=== PATIENT | female | born 1945 | race Caucasian/White ===

== ENCOUNTER → 2017-10-31 | Outpatient (CLI) | payer OTHER | LOC: BHLMT 14:00 | PROVIDERS: ATTEND Internal Medicine Interventional Cardiology | DX: I48.91 Unspecified atrial fibrillation (principal) | CPT/HCPCS: 93306-PO ==

== ENCOUNTER → 2017-11-14 | Outpatient (CLI) | payer OTHER, MEDICARE | LOC: GIMAGING 15:08 | PROVIDERS: ATTEND Internal Medicine | DX: R10.9 Unspecified abdominal pain (principal) | CPT/HCPCS: 74019-PO ==

== ENCOUNTER → 2018-01-17 | Outpatient (CLI) | payer OTHER, MEDICARE | LOC: BHLMT 09:30 | PROVIDERS: ATTEND Internal Medicine Cardiovascular Disease | DX: I48.91 Unspecified atrial fibrillation (principal); R00.2 Palpitations | CPT/HCPCS: 93005-PO ==

== ENCOUNTER → 2018-02-07 | Outpatient (CLI) | payer OTHER, MEDICARE | LOC: BHLMT 16:00 | PROVIDERS: ATTEND Internal Medicine Cardiovascular Disease | DX: I48.91 Unspecified atrial fibrillation (principal) | CPT/HCPCS: 84481-90; 93005-PO ==

== ENCOUNTER → 2018-04-16 | Outpatient (CLI) | payer OTHER, MEDICARE | LOC: CLAB 15:39 | PROVIDERS: ATTEND Internal Medicine | DX: M51.36 Other intervertebral disc degeneration, lumbar region (principal); M51.26 Other intervertebral disc displacement, lumbar region; I50.9 Heart failure, unspecified | CPT/HCPCS: 72100-PO ==

== ENCOUNTER 2018-07-27 10:31 | Emergency (ER) | payer OTHER, MEDICARE ==
--- NOTE | 2018-07-27 10:59 | EDPHY ---
H & P Stated Complaint: cp Time Seen by Provider: 07/27/18 10:41 HPI/ROS: CHIEF COMPLAINT: Chest pain and jaw pain HISTORY OF PRESENT ILLNESS: The patient is a complicated patient with multiple allergies to medications who presents to the ED with episodic chest pain, jaw pain and palpitations which have been occurring for some time however increasing in frequency over the past several weeks. The patient did contact her cardiology service who had recommended a chemical stress test however given the patient's history of multiple allergies her primary care provider was reluctant to recommend this test. The patient had more intense symptoms of chest pain and neck pain last night which prompted her visit to the emergency department today. The patient also has a history of fairly significant anxiety and takes 3-4 mg of Ativan a day for management of the symptoms. REVIEW OF SYSTEMS: A comprehensive 10 point review of systems is otherwise negative aside from elements mentioned in the history of present illness. Source: Patient Exam Limitations: No limitations - Personal History Current Tetanus/Diphtheria Vaccine: Unsure Current Tetanus Diphtheria and Acellular Pertussis (TDAP): Unsure - Medical/Surgical History Hx Asthma: No Hx Chronic Respiratory Disease: No Hx Diabetes: No Hx Cardiac Disease: Yes Hx Renal Disease: No Hx Cirrhosis: No Hx Alcoholism: No Hx HIV/AIDS: No Hx Splenectomy or Spleen Trauma: No Other PMH: a fib, HTN, anxiety, GERD, Jeanette, fibromyalgia, appy, hysterectomy, tonsilectomy, - Social History Smoking Status: Never smoked - Physical Exam Exam: General Appearance: Alert, no distress Eyes: Pupils equal and round no pallor or injection ENT, Mouth: Mucous membranes moist Respiratory: There are no retractions, lungs are clear to auscultation Cardiovascular: Tachycardic Gastrointestinal: Abdomen is soft and nontender, no masses, bowel sounds normal Neurological: A&O, normal motor function, normal sensory exam, normal cranial nerves Skin: Warm and dry, no rashes Musculoskeletal: Neck is supple nontender Extremities: symmetrical, full range of motion Constitutional: Initial Vital Signs Temperature (C) 36.7 C 07/27/18 10:37 Heart Rate 105 H 07/27/18 10:37 Respiratory Rate 16 07/27/18 10:37 Blood Pressure 152/115 H 07/27/18 10:37 O2 Sat (%) 97 07/27/18 10:37 O2 Delivery Mode Room Air Allergies/Adverse Reactions: acetaminophen [From Bringrrcet-N] Allergy (Verified 07/27/18 10:46) amiodarone Allergy (Verified 07/27/18 10:46) azithromycin [From Zithromax] Allergy (Verified 07/27/18 10:46) cephalexin [From Keflex] Allergy (Verified 07/27/18 10:46) clindamycin Allergy (Verified 07/27/18 10:46) codeine Allergy (Verified 07/27/18 10:46) cyclobenzaprine [From Flexeril] Allergy (Verified 07/27/18 10:46) epinephrine Allergy (Verified 07/27/18 10:46) escitalopram [From Lexapro] Allergy (Verified 07/27/18 10:46) famotidine [From Pepcid] Allergy (Verified 07/27/18 10:46) fluoxetine [From Prozac] Allergy (Verified 07/27/18 10:46) Gadolinium-Containing Contrast Medi Allergy (Verified 07/27/18 10:46) hydrochlorothiazide [From Zestoretic] Allergy (Verified 07/27/18 10:46) levofloxacin Allergy (Verified 07/27/18 10:46) lisinopril [From Zestoretic] Allergy (Verified 07/27/18 10:46) metoclopramide [From Reglan] Allergy (Verified 07/27/18 10:46) metoprolol Allergy (Verified 07/27/18 10:46) midazolam [From Versed] Allergy (Verified 07/27/18 10:46) morphine Allergy (Verified 07/27/18 10:46) nitrofurantoin [From Macrodantin] Allergy (Verified 07/27/18 10:46) omeprazole [From Prilosec] Allergy (Verified 07/27/18 10:46) pantoprazole [From Protonix] Allergy (Verified 07/27/18 10:46) Penicillins Allergy (Verified 07/27/18 10:46) potassium chloride [From K-Dur] Allergy (Verified 07/27/18 10:46) povidone Allergy (Verified 07/27/18 10:46) propoxyphene [From Darvocet-N] Allergy (Verified 07/27/18 10:46) Quinolones Allergy (Verified 07/27/18 10:46) Tetracyclines Allergy (Verified 07/27/18 10:46) verapamil Allergy (Verified 07/27/18 10:46) Home Medications: Medication Instructions Recorded Aspirin 07/27/18 Ativan 07/27/18 Klor-Con 07/27/18 Metoprolol Tartrate 07/27/18 Mupirocin 07/27/18 Vasotec 10 MG (*) 07/27/18 Vitamin D3 07/27/18 Medical Decision Making - Diagnostics EKG Interpretation: EKG: Complete interpretation has been separately recorded in the [facility] archive. Summary impression: Sinus rhythm, rate 98, no ST segment elevation or depression, occasional PAC. ED Course/Re-evaluation: The patient presents to the ED with chronic atypical chest pain which has worsened slightly over the past several weeks. Her initial EKG demonstrates no evidence of ischemia. The patient's initial troponin is normal. I did page Cardiology at 11:20 a.m. and have left a message with Dr. Longoria to contact the emergency department. I discussed the case with Dr. Longoria and obtained additional information regarding the patient. I believe the patient is experiencing symptoms most consistent with anxiety and not underlying coronary artery disease. The patient has a known calcium score of 0. She has no significant arrhythmia in the emergency department. It is not clear that she has a obvious contraindication to get a nuclear stress test. At this point time I do feel the patient can be discharged home and follow up with Cardiology. Perhaps she could be considered for a treadmill stress test. Differential Diagnosis: Differential diagnosis considered includes acute coronary syndrome, dehydration , metabolic abnormality, anxiety reaction - Data Points Laboratory Results: Laboratory Results 07/27/18 10:52 07/27/18 10:52 07/27/18 07/27/18 07/27/18 10:58 10:52 10:52 WBC 8.54 10^3/uL 10^3/uL (3.80-9.50) RBC 5.80 10^6/uL H 10^6/uL (4.18-5.33) Hgb 16.9 g/dL H g/dL (12.6-16.3) Hct 50.1 % H % (38.0-47.0) MCV 86.4 fL fL (81.5-99.8) MCH 29.1 pg pg (27.9-34.1) MCHC 33.7 g/dL g/dL (32.4-36.7) RDW 12.3 % % (11.5-15.2) Plt Count 311 10^3/uL 10^3/uL (150-400) MPV 9.3 fL fL (8.7-11.7) Neut % (Auto) 72.2 % % (39.3-74.2) Lymph % (Auto) 19.7 % % (15.0-45.0) [place] % (Auto) 6.4 % % (4.5-13.0) Eos % (Auto) 1.1 % % (0.6-7.6) Baso % (Auto) 0.4 % % (0.3-1.7) Nucleat RBC Rel Count 0.0 % % (0.0-0.2) Absolute Neuts (auto) 6.17 10^3/uL 10^3/uL (1.70-6.50) Absolute Lymphs (auto) 1.68 10^3/uL 10^3/uL (1.00-3.00) Absolute Monos (auto) 0.55 10^3/uL 10^3/uL (0.30-0.80) Absolute Eos (auto) 0.09 10^3/uL 10^3/uL (0.03-0.40) Absolute Basos (auto) 0.03 10^3/uL 10^3/uL (0.02-0.10) Absolute Nucleated RBC 0.00 10^3/uL 10^3/uL (0-0.01) Immature Gran % 0.2 % % (0.0-1.1) Immature Gran # 0.02 10^3/uL 10^3/uL (0.00-0.10) Sodium 143 mEq/L mEq/L (135-145) Potassium 3.8 mEq/L mEq/L (3.3-5.0) Chloride 107 mEq/L mEq/L (97-110) Carbon Dioxide 24 mEq/l mEq/l (22-31) Anion Gap 12 mEq/L mEq/L (6-14) BUN 10 mg/dL mg/dL (7-23) Creatinine 0.8 mg/dL mg/dL (0.6-1.0) Estimated GFR > 60 Glucose 119 mg/dL H mg/dL (70-100) Calcium 9.7 mg/dL mg/dL (8.5-10.4) POC Troponin I 0.00 ng/mL ng/mL (0.00-0.08) Point of Care Test Results: Chemistry 07/27/18 10:58 POC Troponin I 0.00 ng/mL ng/mL (0.00-0.08) Departure - Departure Disposition: Home, Routine, Self-Care Clinical Impression: Chest pain Condition: Good Instructions: Chest Pain (ED) Additional Instructions: 1. I recommend scheduling a follow-up appointment with Cardiology. It is not clear that there is an obvious contraindication for you to have a nuclear stress test. 2. The testing done in the emergency department today demonstrates no evidence of a heart attack or significant arrhythmia. Referrals: Mima Garcia MD [Primary Care Provider] - As per Instructions Uriah Piña NP [Certified Nurse Practioner] - As per Instructions
--- NOTE | 2018-07-27 11:02 | CPEKG ---
Test Reason : OPEN Blood Pressure : / mmHG Vent. Rate : 098 BPM Atrial Rate : 102 BPM P-R Int : 202 ms QRS Dur : 079 ms QT Int : 374 ms P-R-T Axes : 053 -48 060 degrees QTc Int : 478 ms Sinus tachycardia Atrial premature complexes LAD, consider left anterior fascicular block Confirmed by Tyrell Solomon ([id number]) on 07/27/2018 11:01:34 AM Referred By: Confirmed By:Tyrell Solomon
[2018-07-27 11:04] LABS: PLATELET COUNT 311 10^3/uL (150-400)
[2018-07-27 12:28] VITALS: BP 145/88
== END 2018-07-27 12:29 | disposition home or self-care (01) ==
DX: R07.9 Chest pain, unspecified (principal); I10 Essential (primary) hypertension; I48.91 Unspecified atrial fibrillation
CPT/HCPCS: 84484-PO

== ENCOUNTER → 2018-08-07 | Outpatient (CLI) | payer OTHER, MEDICARE | LOC: BHLMT 09:00 | PROVIDERS: ATTEND Internal Medicine Cardiovascular Disease | DX: I25.10 Atherosclerotic heart disease of native coronary artery without angina pectoris (principal) | CPT/HCPCS: 78452; 93017; A9500 ==

== ENCOUNTER → 2018-12-27 | Outpatient (CLI) | payer OTHER, MEDICARE | LOC: BHLMT 11:30 | PROVIDERS: ATTEND Internal Medicine Cardiovascular Disease | DX: I48.91 Unspecified atrial fibrillation (principal); R00.2 Palpitations | CPT/HCPCS: 93225-PO; 93226-PO ==